=== PATIENT | male | born 1960 | race Hispanic/Latino ===

== ENCOUNTER 2017-08-23 09:11 | Day surgery (SDC) | payer OTHER ==
[2017-08-15 11:48] VITALS: BMI 21.6
[2017-08-23 09:46] VITALS: RESP 18
[2017-08-23] MEDS ORDERED: Propofol 10 mg/ml Inj (20 ML) ONE ×2 (11:10→11:55)
[2017-08-23] MEDS ORDERED: Sodium Chloride 0.9% 1,000 ML IV SCH (12:30)
[2017-08-23 14:42] VITALS: BP 119/72; TEMP 98.5
[2017-08-23 14:43] VITALS: PULSE 63; O2SAT 97
== END 2017-08-23 13:54 | disposition home or self-care (01) ==
LOC: ENDO 09:11
PROVIDERS: ATTEND Internal Medicine Gastroenterology
DX: K92.1 Melena (principal); D12.2 Benign neoplasm of ascending colon; D12.5 Benign neoplasm of sigmoid colon; K29.50 Unspecified chronic gastritis without bleeding; K21.0 Gastro-esophageal reflux disease with esophagitis; K64.8 Other hemorrhoids
CPT/HCPCS: 43239; 45381; 45385; 88305; 88312; 88342; J2001; J2704; J7030; J7040

== ENCOUNTER 2018-04-18 12:06 | Emergency (ER) | payer OTHER ==
[2018-04-18 12:11] VITALS: BMI 21.0
[2018-04-18] MEDS ORDERED: Sodium Chloride 0.9% 1,000 ML IV SCH (12:45)
--- NOTE | 2018-04-18 12:48 | ED PDOC ---
Arrival/HPI - General Chief Complaint: Dizziness/Lightheaded Time Seen by Provider: 04/18/18 12:22 Historian: Patient - History of Present Illness Narrative History of Present Illness (Text): 04/18/18 12:44 pt p/w + 4 days onset of intermittent dizziness/lightheadedness; pt states symptoms were severe 3-4days ago, pt states he felt like he was going to fall, pt felt at times room was spinning; pt described symptoms of severe feelings of movement forward; pt states symptoms last a few min; pt states symptoms improved over the last 2 days but still has residual dizziness/lightheadedness; pt was able to jog/run yesterday; pt states + nausea, no vomiting; pt denied slurr speech, no avila/vision changes, no neck pain, no fever/chills/sweats, no cp/ sob/palpitations, no abd pain, no numbness/tingling, no focal weakness, no fall/ trauma/sick contact, no travel; pt denied other complaints pt is here for further eval. pt denied LOC PCP: Dr Gardner right hand dominate Time/Duration: < week (4 days ago) Symptom Onset: Sudden Symptom Course: Improving, Intermittent Severity Level: Severe Activities at Onset: Rest Context: Home Past Medical History - Provider Review Nursing Documentation Reviewed: Yes - Travel History Have you recently traveled outside [place] w/in the past 3 mons?: No - Past History Past History: No Previous - Infectious Disease Hx of Infectious Diseases: None - Tetanus Immunization Tetanus Immunization: Unknown - Cardiac Hx Pacemaker: No - Hematological/Oncological Hx Blood Transfusions: No Hx Blood Transfusion Reaction: No - Musculoskeletal/Rheumatological Hx Musculoskeletal Disorders: No - Psychiatric Hx Emotional Abuse: No Hx Physical Abuse: No Hx Substance Use: No - Surgical History Other/Comment: inguinal hernia - Anesthesia Hx Anesthesia Reactions: No Hx Malignant Hyperthermia: No - Suicidal Assessment Feels Threatened In Home Enviroment: No Family/Social History - Physician Review Nursing Documentation Reviewed: Yes Family/Social History: No Known Family HX Smoking Status: Unknown If Ever Smoked Hx Alcohol Use: Yes (SOCIAL) Hx Substance Use: No Hx Substance Use Treatment: No Allergies/Home Meds Allergies/Adverse Reactions: Allergies No Known Allergies Allergy (Verified 04/18/18 12:24) Review of Systems - Review of Systems Constitutional: Fatigue Eyes: Normal. absent: Vision Changes ENT: Normal Respiratory: Normal. absent: SOB Cardiovascular: Normal. absent: Chest Pain, Syncope Gastrointestinal: Normal, Nausea. absent: Abdominal Pain, Vomiting Genitourinary Male: Normal Musculoskeletal: Normal. absent: Arthralgias, Back Pain Skin: Normal Neurological: Dizziness. absent: Headache, Speech Changes Endocrine: Normal Hemo/Lymphatic: Normal Psychiatric: Normal Physical Exam - Physical Exam Narrative Physical Exam (Text): 04/18/18 12:49 General: alert/awake, GCS = 15, oriented x 3, resting in bed, uncomfortable, cooperative, interactive; NAD Head: NC/AT EYE: PERRLA, EOMI, sclera anicteric, no nystagmus, no photophobia; visual field intact b/l Facial: WNL Oral: uvula/tongue are midline, no exudate/lesions, no drooling/stridor, no dysphonia; intact dentitions; moist oral mucosa NECK: intact ROM, no midline tenderness, no nuchal rigidity, no meningeal signs ; no step off Chest: CTA b/l, no w/r/r; no tachypenia, no accessory muscle use noted Cardiac: +S1, +S2, no m/r/r, no tachycardia Abdominal: +BS, soft/nd/nt, well nourished patient; no masses/rebound/guarding/ rigidity; no cedillo's sign, no mcburney's point tenderness Extremities: intact ROM, strength 5/5 grossly intact in all limbs, neurovasc intact b/l; + ambulatory; reflex +2/2 BACK: no step off, no midline tenderness, NO crepitus, no gross deformities noted; Intact ROM SKIN: cap refill < 1 sec, no ulcerations, no petechiae, no rashes NEURO: CNII-XII WNL, no facial asymmetries, no slurr speech, oriented x 3 NIH stroke scale ~ 0 Psych: normal insight, normal affect; follows command with ease Vital Signs Reviewed: Yes Vital Signs Temp Pulse Resp BP Pulse Ox 04/18/18 12:11 98 F 62 18 131/77 98 Temperature: Afebrile Blood Pressure: Normal Pulse: Regular Respiratory Rate: Normal Appearance: Positive for: Well-Appearing, Non-Toxic, Comfortable, Other (alert/ awake, GCS = 15, oriented x 3, NAD, resting in bed, cooperative, follows command with ease) Pain Distress: None Mental Status: Positive for: Alert and Oriented X 3 - Systems Exam Head: Present: Atraumatic, Normocephalic Medical Decision Making ED Course and Treatment: 04/18/18 12:50 Impression: dizziness/weakness/lightheadedness i have consider all the differential diagnosis regarding pt's chief medical complaints/clinical findings, including but are not limited to: r/o peripherial disorder (i.e vertigo); ?? central process such as vertebrobasiliary insufficiency A/P: dizziness/weakness/lightheadedness - labs - iv - ct - ekg - xray - supportive care - observe/reevaluation 04/18/18 15:00 pt is doing well pt is comfortable pt denied dizziness currently pt remained able to ambulate with ease NIH stroke scale ~ 0 vital signs WNL 3:20pm - I spoke to Dr Gardner, pt's PCP, made aware of Emergency department mgt/txt/dx, will f/u with patient as outpt. pt is made aware of his medical results pt is encouraged fluid hydration pt is encouraged 1 baby ASA daily pt will f/u as directed pt will be discharged home Re-evaluation Time: 15:11 Reassessment Condition: Improved - Lab Interpretations Lab Results: 04/18/18 12:50 04/18/18 12:50 Lab Results 04/18/18 12:50: TSH 3rd Generation 3.48 04/18/18 12:50: Sodium 139, Potassium 4.0, Chloride 100, Carbon Dioxide 28, Anion Gap 15, BUN 8, Creatinine 0.8, Est GFR ( Amer) > 60, Est GFR (Non- Af Amer) > 60, Random Glucose 101, Calcium 9.1, Total Bilirubin 0.6, AST 42, ALT 39, Alkaline Phosphatase 70, Troponin I < 0.01, Total Protein 6.7, Albumin 4.3, Globulin 2.5, Albumin/Globulin Ratio 1.7, Lipase 80 04/18/18 12:50: WBC 3.4 L, RBC 4.25, Hgb 14.4, Hct 41.7 L, MCV 98.1, MCH 33.9, MCHC 34.5, RDW 12.1, Plt Count 172, MPV 8.8, Gran % 58.8, Lymph % (Auto) 24.2, [place] % (Auto) 14.6 H, Eos % (Auto) 1.2 L, Baso % (Auto) 1.2, Gran # 1.97, Lymph # (Auto) 0.8 L, [place] # (Auto) 0.5, Eos # (Auto) 0.0, Baso # (Auto) 0.04 I have reviewed the lab results: Yes Interpretation: All labs normal - RAD Interpretation Narrative RAD Interpretations (Text): 04/18/18 13:45 Chest X-ray reviewed by radiologist, shows: FINDINGS: LUNGS: No active pulmonary disease. PLEURA: No significant pleural effusion identified, no pneumothorax apparent. CARDIOVASCULAR: Heart size normal. Mild prominence to the ascending aorta -chronicity unknown. Consider comparison with outside chest x-rays -if exist. Can be seen with hypertension OSSEOUS STRUCTURES: No significant abnormalities. VISUALIZED UPPER ABDOMEN: Normal. OTHER FINDINGS: None. IMPRESSION: No consolidation cardiomegaly or pulmonary venous congestion. No pleural effusion. Relative prominence to the ascending aorta in part may be technical. Can be associated with hypertension in its chronicity/stability is not known without comparison studies. To evaluate the ascending aortic caliber, consider CT of the chest 04/18/18 14:59 CT of head reviewed by radiologist, shows: FINDINGS: HEMORRHAGE: No intracranial hemorrhage. BRAIN: No mass effect or edema. No atrophy or chronic microvascular ischemic changes. VENTRICLES: Unremarkable. No hydrocephalus. CALVARIUM: Unremarkable. PARANASAL SINUSES: Unremarkable as visualized. No significant inflammatory changes. MASTOID AIR CELLS: Unremarkable as visualized. No inflammatory changes. OTHER FINDINGS: None. IMPRESSION: No acute findings Radiology Orders: 04/18/18 12:42 HEAD W/O CONTRAST [CT] Stat CHEST PORTABLE [RAD] Stat Associate Manager [employer]: Radiologist - EKG Interpretation EKG Interpretation (Text): 04/18/18 12:52 Sinus missy at 55 bpm, normal axis, no ectopy, no st-t changes, BORDERLINE EKG; no old ekg to compare with Interpreted by ED Physician: Yes Type: 12 lead EKG Comparison: No previous EKG avail. - Medication Orders Current Medication Orders: Sodium Chloride (Sodium Chloride 0.9%) 1,000 mls @ 100 mls/hr IV .Q10H [facility] Last Admin: 04/18/18 13:00 Dose: 100 mls/hr eMAR Start Stop Document 04/18/18 13:00 MR (Rec: 04/18/18 13:07 MR [id number]) Intravenous Solution Start Date 04/18/18 Start Time 13:07 Discontinued Medications Aspirin (Aspirin) 325 mg PO STAT STA Stop: 04/18/18 12:44 Last Admin: 04/18/18 13:00 Dose: 325 mg Meclizine HCl (Antivert) 25 mg PO STAT STA Stop: 04/18/18 12:44 Last Admin: 04/18/18 13:00 Dose: 25 mg Metoclopramide HCl (Reglan) 10 mg IVP STAT STA Stop: 04/18/18 12:44 Last Admin: 04/18/18 13:00 Dose: 10 mg IVP Administration Document 04/18/18 13:00 MR (Rec: 04/18/18 13:00 MR [id number]) Charges for Administration # of IVP Administrations 1 Disposition/Present on Arrival - Present on Arrival Any Indicators Present on Arrival: No History of DVT/PE: No History of Uncontrolled Diabetes: No Urinary Catheter: No History of Decub. Ulcer: No History Surgical Site Infection Following: None - Disposition Have Diagnosis and Disposition been Completed?: Yes Diagnosis: Dizziness, nonspecific Disposition: HOME/ ROUTINE Disposition Time: 15:11 Patient Plan: Discharge Condition: STABLE Discharge Instructions (ExitCare): Vertigo (a Type of Dizziness) Print Language: PANAMANIAN Additional Instructions: Make sure to see your doctor in 1-2 days DRINK PLENTY OF FLUIDS ONE baby aspirin daily is recommended take your medications as prescribed RETURN TO ED IF worse pain, cant breath, persistent vomiting, high fever >101- 102 for hours, altered behavior, slurr speech, facial changes, focal weakness ( arm/leg or both), unable to urinate, heavy/persistent bleeding, passing out, chest pain, or other medical emergencies Prescriptions: Meclizine [Meclizine*] 25 mg PO Q6 PRN #30 tab PRN Reason: Dizziness Metoclopramide HCl [Reglan] 10 mg PO TID PRN #20 tablet PRN Reason: Nausea/Vomiting Referrals: Willy Vergara MD [Staff Provider] - Follow up with primary Forms: [email or web address] (Slovenian)
[2018-04-18 13:00] LABS: BASO # 0.04 K/mm3 (0.0-2.0); BASO % 1.2 % (0.0-3.0); EOS % 1.2 % (1.5-5.0); GRAN # 1.97 (1.4-6.5); GRAN % 58.8 % (50.0-68.0); HEMOGLOBIN 14.4 g/dL (14.0-18.0); LYMPH # 0.8 (1.2-3.4); LYMPH % 24.2 % (22.0-35.0); MEAN CELL VOLUME 98.1 fl (80.0-105.0); MEAN CORPUSCULAR HEMOGLOBIN 33.9 pg (25.0-35.0); MEAN CORPUSCULAR HGB CONC 34.5 g/dl (31.0-37.0); MEAN PLATELET VOLUME 8.8 fl (7.0-11.0); MONO # 0.5 (0.1-0.6); MONO % 14.6 % (1.0-6.0); RBC 4.25 10^6/uL (3.5-6.1); RED CELL DISTRIBUTION WIDTH 12.1 % (11.5-14.5); WHITE BLOOD COUNT 3.4 10^3/ul (4.5-11.0)
[2018-04-18 13:11] LABS: ALB/GLOB RATIO 1.7 (1.1-1.8); ALBUMIN 4.3 g/dL (3.0-4.8); ALT/SGPT 39 U/L (7-56); AST/SGOT 42 U/L (17-59); BLOOD UREA NITROGEN 8 mg/dL (7-21); CALCIUM 9.1 mg/dL (8.4-10.5); GFR AFRICAN-AMERICAN > 60; GFR NON-AFRICAN AMERICAN > 60; LIPASE 80 U/L (23-300)
[2018-04-18 13:23] LABS: TROPONIN I < 0.01 ng/mL
--- NOTE | 2018-04-18 13:34 | RAD ---
HISTORY: dizziness COMPARISON: No prior. FINDINGS: LUNGS: No active pulmonary disease. PLEURA: No significant pleural effusion identified, no pneumothorax apparent. CARDIOVASCULAR: Heart size normal. Mild prominence to the ascending aorta -chronicity unknown. Consider comparison with outside chest x-rays -if exist. Can be seen with hypertension OSSEOUS STRUCTURES: No significant abnormalities. VISUALIZED UPPER ABDOMEN: Normal. OTHER FINDINGS: None. IMPRESSION: No consolidation cardiomegaly or pulmonary venous congestion. No pleural effusion. Relative prominence to the ascending aorta in part may be technical. Can be associated with hypertension in its chronicity/stability is not known without comparison studies. To evaluate the ascending aortic caliber, consider CT of the chest
--- NOTE | 2018-04-18 14:51 | CT ---
PROCEDURE: CT HEAD WITHOUT CONTRAST. HISTORY: lightheadedness/dizziness x 4days COMPARISON: None available. TECHNIQUE: Axial computed tomography images were obtained through the head/brain without intravenous contrast. Radiation dose: Total exam DLP = 868 mGy-cm. This CT exam was performed using one or more of the following dose reduction techniques: Automated exposure control, adjustment of the mA and/or kV according to patient size, and/or use of iterative reconstruction technique. FINDINGS: HEMORRHAGE: No intracranial hemorrhage. BRAIN: No mass effect or edema. No atrophy or chronic microvascular ischemic changes. VENTRICLES: Unremarkable. No hydrocephalus. CALVARIUM: Unremarkable. PARANASAL SINUSES: Unremarkable as visualized. No significant inflammatory changes. MASTOID AIR CELLS: Unremarkable as visualized. No inflammatory changes. OTHER FINDINGS: None. IMPRESSION: No acute findings
[2018-04-18 15:40] VITALS: BP 112/71; PULSE 79; RESP 16; TEMP 98.1; O2SAT 97
--- NOTE | 2018-04-19 08:14 | CARD ---
APPROVED REPORT EKG Measurement Heart [id number] <Conclusion> Sinus bradycardia Possible Left atrial enlargement
== END 2018-04-18 15:30 | disposition home or self-care (01) ==
LOC: ED 12:06
DX: R42 Dizziness and giddiness (principal)
CPT/HCPCS: 70450; 71045; 80053; 83690; 84443; 84484; 85025; 93005; 96374; 99285; J2765; J7040